=== PATIENT | female | born 1975 | race Caucasian/White ===

== ENCOUNTER 2021-01-02 14:10 | Outpatient (CLI) | payer BC ==
--- NOTE | 2021-01-02 19:28 | RAD ---
CHEST TWO VIEWS: Date: 01-02-2021 FINDINGS: The patient reports a prior history of Covid pneumonia. No prior films were available for comparison. The heart is normal in size. The lungs are clear. No acute infiltrate or effusion was seen. There is no vascular congestion or edema. The mediastinum appears normal. IMPRESSION: No acute thoracic finding. POS: HOME
== END 2021-01-02 14:11 | disposition home or self-care (01) ==
LOC: BURRAD 14:10
PROVIDERS: ATTEND Nurse Practitioner Family
DX: M35.81 Multisystem inflammatory syndrome (principal)
CPT/HCPCS: 71046